=== PATIENT | female | born 1940 | race Caucasian/White ===

== ENCOUNTER 2018-07-20 09:49 | Emergency (ER) | payer MEDICARE, BC ==
[~2018-07-20] VITALS: Ht 162.6 cm; Wt 76.0 kg
[~2018-07-20 09:49] MED LIST: CALCIUM/D250 MG PO; CIPRO XR500 MG PO; LISINOPRIL20 MG PO; LORTAB5 PO; PRESERVISION OR; PROTONIX40 MG PO; STOOL SOFTEN1 TAB OR; SYSTAN1 OP; ZITHROMAX250 MG PO
[2018-07-20] MEDS ORDERED: OMEPRAZOLE10 MG PO (10:37)
[2018-07-20] MEDS ORDERED: ASPIRIN81 MG PO (10:37)
[2018-07-20] MEDS ORDERED: AMLODIPINE5 MG PO (10:37)
[2018-07-20] MEDS ORDERED: LOSARTAN POTASS25 MG PO (10:37)
[2018-07-20 10:54] LABS: URINE BILIRUBIN - DIPSTICK NEGATIVE (NEGATIVE); URINE BLOOD DIPSTICK TRACE-INTACT (NEGATIVE); URINE COLOR YELLOW; URINE GLUCOSE - DIPSTICK NEGATIVE (NEGATIVE); URINE KETONE NEGATIVE (NEGATIVE); URINE LEUK ESTERASE NEGATIVE (NEGATIVE); URINE NITRITE - DIPSTICK NEGATIVE (Negative); URINE PROTEIN - DIPSTICK NEGATIVE (NEG-TRACE); URINE UROBILINOGEN - DIPSTICK 0.2 E.U./dL (0.2)
[2018-07-20 10:55] LABS: HEMATOCRIT 40.8 % (37.0-47.0); HEMOGLOBIN 13.4 g/dl (12.0-16.0); IMMATURE GRANULOCYTES 0.3 % (0.0-5.0); MEAN CORPUSCULAR HGB 31.5 pG CALC (26.0-32.0); MEAN CORPUSCULAR HGB CONC 32.8 g/L CALC (32.0-36.0); NEUT# 3.62 thou/uL (2.00-7.15); RED BLOOD COUNT 4.25 mill/uL (4.20-5.60); RED CELL DISTRI WIDTH 13.6 % (11.5-15.5)
[2018-07-20 10:57] LABS: ALBUMIN 3.8 g/dL (3.2-5.0); ALKALINE PHOSPHATASE 74 u/l (38-126); ANION GAP 13 (6-22 (CALC)); BILIRUBIN, TOTAL 0.4 mg/dL (0.0-1.4); BUN 14 mg/dL (8-23); BUN/CREATININE RATIO 20 (12-20 (CALC)); CARBON DIOXIDE 28 mmol/l (22-30); CHLORIDE 105 mmol/l (95-108); CREATININE 0.7 mg/dL (0.5-1.0); GFR > 60 ML/MIN (>=60 (CALC)); GFR FOR AFR.AMER. > 60 ML/MIN (>=60 (CALC)); SGOT/AST 21 u/l (9-36); SODIUM 141 mmol/l (137-146); TOTAL PROTEIN 6.5 g/dL (6.3-8.2)
[2018-07-20 10:58] LABS: URINE CLARITY CLEAR
[2018-07-20] MEDS ORDERED: MEDDOSEPAK PO (15:47)
[2018-07-20] MEDS ORDERED: ULTRAM50 M1 PO (15:47)
[2018-07-20] MEDS ORDERED: TORADOL PO (15:47)
[2018-07-20 15:54] VITALS: BP 145/75
== END 2018-07-20 16:03 | disposition home or self-care (01) ==
LOC: ED 09:49
PROVIDERS: Emergency Medicine
DX: M51.16 Intervertebral disc disorders with radiculopathy, lumbar region (principal); I10 Essential (primary) hypertension; M79.605 Pain in left leg; R10.32 Left lower quadrant pain
CPT/HCPCS: Q9967

== ENCOUNTER → 2018-12-01 | Outpatient (REF) | payer MEDICARE, BC ==
[~2018-12-01] MED LIST changes: +AMLODIPINE5 MG PO; +ASPIRIN81 MG PO; +LOSARTAN POTASS25 MG PO; +MEDDOSEPAK PO; +OMEPRAZOLE10 MG PO; +TORADOL PO; +ULTRAM50 M1 PO
[2018-12-01 13:35] LABS: URINE BILIRUBIN - DIPSTICK NEGATIVE (NEGATIVE); URINE BLOOD DIPSTICK NEGATIVE (NEGATIVE); URINE GLUCOSE - DIPSTICK NEGATIVE (NEGATIVE); URINE KETONE NEGATIVE (NEGATIVE); URINE PROTEIN - DIPSTICK NEGATIVE (NEG-TRACE); URINE UROBILINOGEN - DIPSTICK 0.2 E.U./dL (0.2)
[2018-12-01 13:43] LABS: URINE LEUK ESTERASE SMALL (NEGATIVE); URINE NITRITE - DIPSTICK POSITIVE (Negative)
[2018-12-01 13:44] LABS: URINE COLOR DK. YELLOW
[2018-12-01 13:45] LABS: URINE BACTERIA MODERATE hpf
== END | disposition home or self-care (01) ==
LOC: LABSPEC 10:47
PROVIDERS: ATTEND Nurse Practitioner Family
DX: R30.0 Dysuria (principal); B96.20 Unspecified Escherichia coli [E. coli] as the cause of diseases classified elsewhere